=== PATIENT | male | born 1950 | race Caucasian/White ===

== ENCOUNTER 2018-02-27 20:08 | Inpatient (IN) | payer OTHER ==
[~2018-02-27] VITALS: Ht 152.4 cm; Wt 66.7 kg
--- NOTE | ~2018-02-27 | H ---
[address] [address] HISTORY AND PHYSICAL Name: SHIRLENE JACOBO Room: [address] IN M.R.#: [id number] Admission: 02/27/18 Attend Phys: Florin Rivera Discharge: 02/28/18 Date of : 46 Report #: [id number] THIS REPORT FOR: //name// Patient was here less than 24 hour please refer to the final summation note. By: [id number] Records Staff SHU /MIREYA
[2018-02-27 07:00] VITALS: BP 207/72
[2018-02-27] MEDS ORDERED: LISINOPRIL20 MG (20:25)
[2018-02-27] MEDS ORDERED: ASPIR-LOW81 MG (20:26)
[2018-02-27] MEDS ORDERED: NORVASC10 MG (20:27)
[2018-02-27] MEDS ORDERED: PRAVACHOL40 MG (20:27)
[2018-02-27] MEDS ORDERED: SYMBICORT160 MCG/4. (20:29)
[2018-02-27] MEDS ORDERED: VENTOLIN HFA 1818 GM (20:30)
[2018-02-27] MEDS ORDERED: ALBUTEROL2.5 MG/31 (20:31)
[2018-02-27 20:39] LABS: HEMATOCRIT 42.8 % (42.0-52.0); MCH 29.9 pg (26.0-34.0); MCHC 32.7 g/dL (28.0-37.0); MCV 91.3 fL (80.0-100.0); MPV 8.9 fl. (7.2-11.1); NUCLEATED RBCS 0 /100WBC; PLATELET COUNT* 308 thou/uL (150-400); RBC 4.69 mil/uL (4.50-6.00); WBC 14.9 thou/uL (4.0-11.0)
[2018-02-27 20:51] LABS: ANION GAP 17 mmol/L (7-16); BUN 18 mg/dL (7-18); CALCIUM 8.5 mg/dL (8.5-10.1); CHLORIDE 90 mmol/L (98-107); CO2 22 mmol/L (21-32); CREATININE 2.6 mg/dL (0.6-1.3); GLUCOSE 120 mg/dL (70-99); POTASSIUM 3.5 mmol/L (3.5-5.1); SODIUM 129 mmol/L (136-145)
[2018-02-27 20:55] LABS: INR 1.2; PROTIME 12.2 Seconds (9.20-11.50)
[2018-02-27 21:02] LABS: ABSOLUTE LYMPHOCYTES 0.3 thou/uL (0.8-5.3); ABSOLUTE MONOCYTES 1.6 thou/uL (0.0-1.2); METAMYELOCYTES 2 %; PLATELET ESTIMATE ADEQUATE
[2018-02-27 21:06] LABS: ALBUMIN 2.8 g/dL (3.4-5.0); ALKALINE PHOSPHATASE 61 U/L (46-116); NT-PRO BRAIN NAT PEPTIDE 3062 pg/mL (<300); SGOT 36 U/L (15-37); SGPT 45 U/L (30-65); TOTAL BILIRUBIN 1.1 mg/dL (<0.1-1.0); TOTAL PROTEIN 7.6 g/dL (6.4-8.2); TROPONIN-I LEVEL <0.06 ng/mL (<0.06)
[2018-02-27 21:07] LABS: BE -5.8 mmol/L (-2 to +3); HCO3 18.4 mmol/L (22.0-26.0); PCO2 32.5 mmHg (35.0-45.0)
[2018-02-27 21:09] LABS: PO2 125.8 mmHg (75.0-100.0)
--- NOTE | 2018-02-27 23:18 | NUR ---
PATIENT MOVED TO ROOM 1 AT APPROX 2220
[2018-02-28] VITALS (23 sets, daily range): BP systolic 62–250; BP diastolic 14–106
--- NOTE | 2018-02-28 02:09 | NUR ---
PATIENT INTUBATED AND CENTRAL LINE PLACEMENT DONE AT 2300. PATIENT THEN TRANSPORTED TO CT.
[2018-02-28 02:35] LABS: HCO3 18.1 mmol/L (22.0-26.0); PO2 101.4 mmHg (75.0-100.0)
[2018-02-28 02:36] LABS: PCO2 64.1 mmHg (35.0-45.0); pH 7.068 (7.340-7.450)
[2018-02-28 05:45] LABS: URINE BLOOD 2+ (Negative); URINE CLARITY CLEAR; URINE COLOR YELLOW; URINE GLUCOSE-RANDOM NEGATIVE (Negative); URINE KETONES TRACE (Negative); URINE LEUKOCYTES-REFLEX NEGATIVE (Negative); URINE NITRITE-REFLEX NEGATIVE (Negative); URINE PROTEIN 2+ (Negative); URINE SPECIFIC GRAVITY >= 1.030 (1.005-1.030); URINE UROBILINOGEN 0.2 E.U./dl (0.2-1.0)
[2018-02-28 05:48] LABS: ICTOTEST (BILI CONFIRMATORY) Negative (Negative); URINE BILIRUBIN 1+ (Negative)
[2018-02-28 05:55] LABS: BE -9.4 mmol/L (-2 to +3); HCO3 23.5 mmol/L (22.0-26.0); PO2 69.2 mmHg (75.0-100.0)
[2018-02-28 05:56] LABS: BACTERIA-REFLEX 1-9 Few /HPF (None Seen); COARSE GRANULAR CASTS 0-3 Few /LPF (None Seen); FINE GRANULAR CASTS 0-3 Few /LPF (None Seen); MUCUS 0-3 Light strn/LPF (None Seen); SQUAMOUS 0-3 Few /LPF (0-3); URINE RBC 3-10 Few /HPF (0-2); URINE WBC-REFLEX 0-5 Rare /HPF (0-5)
[2018-02-28 05:57] LABS: AMORPHOUS URATES Few /LPF (None Seen)
[2018-02-28 06:13] LABS: CREATININE 2.1 mg/dL (0.6-1.3)
[2018-02-28 06:18] LABS: INFLUENZA A ANTIGEN None Detected (None Detect); TOTAL BILIRUBIN 0.6 mg/dL (<0.1-1.0); TOTAL PROTEIN 6.1 g/dL (6.4-8.2)
[2018-02-28 06:19] LABS: INFLUENZA B ANTIGEN None Detected (None Detect)
--- NOTE | 2018-02-28 06:36 | NUR ---
ASSMUMED CARE OF PT AT 0330 WHEN PT TRANSFERED OVER FROM THE ER. ASSISSTED TO ICU BED. PT INTUBATED WITH REAPIRATORY TITRATING VENT SETTINGS. PT ON LEVO GTT TITRATING TO KEEP MAP ABOVE 65. PTS HR WAS 120'S. AT 0540
[2018-02-28 06:45] LABS: pH 7.042 (7.340-7.450)
[2018-02-28 06:46] LABS: PCO2 88.5 mmHg (35.0-45.0)
--- NOTE | 2018-02-28 07:29 | NUR ---
PT ARRIVED ON UNIT FROM ER AT 0330 PT ASSISTED TO BED. PT INTUBATED FOR RESPIRATORY FAILURE IN THE ER AND ON LEVO FOR HYPOTENSION HOLDING MAP ABOVE 65. AT 0545 PT BECAME PULSLESS CODE CALLED (SEE CODE SHEET) ROSC AT 0551. PTS BP 130'S/70'S. PT AGAIN BECAME PULSELESS FOR THE SECOND TIME AT 0650 (SEE CODE SHEET) PT ROSC 0700 HAD PULSE BUT UNABLE TO OBTAIN PRESSURE CONTACTED MD FOR 2ND PRESSOR EPI GTT STARTED PT BECAME PULSELESS FOR THE THIRD TIME AT 0716 (SEE CODE SHEET). DR TOWNSEND SPOKE WITH PTS DAUGHTER CODE CALLED AT 0721.
--- NOTE | 2018-02-28 10:12 | EKG ---
[place] [address] ELECTROCARDIOGRAM REPORT Name: SHIRLENE JACOBO Room: [address] ADM IN M.R.#: [id number] Admission: 02/27/18 Attend Phys: Florin Rivera Discharge: Date of : 46 Report #: [id number] THIS REPORT FOR: //name// [facility] ED Test Date: 2018-02-27 Test Time: 20:11:42 Pat Name: SHIRLENE JACOBO Department: Room: [facility] Gender: M Hospital Liaison: : 1950 Requested By: Sun Mendiola Order Number: [id number] MD: Lamine Lundberg Measurements Intervals [place] Rate: 118 P: 72 OK: 141 QRS: 73 QRSD: 95 T: 60 QT: 326 QTc: 457 Interpretive Statements Sinus tachycardia Probable left atrial enlargement Low voltage with right axis deviation Artifact in lead(s) I,III,aVL,V3,V4,V5 Compared to ECG 06/14/2008 13:48:59 Right-axis deviation now present Low QRS voltage now present Sinus rhythm no longer present Electronically Signed On 02-28-2018 10:12:19 WATCH AND CLOCK REPAIRER by Lamine Lundberg [email or web address] <ELECTRONICALLY SIGNED> By: Lamine Lundberg MD, FACC 02/28/18 1012 10 10 Lamine Lundberg MD, FACC /EPI
--- NOTE | 2018-02-28 10:15 | EKG ---
[place] [address] ELECTROCARDIOGRAM REPORT Name: SHIRLENE JACOBO Room: [address] ADM IN M.R.#: [id number] Admission: 02/27/18 Attend Phys: Florin Rivera Discharge: Date of : 46 Report #: [id number] THIS REPORT FOR: //name// [facility] Test Date: 2018-02-28 Test Time: 06:06:02 Pat Name: SHIRLENE JACOBO Department: Room: [address] Gender: M After School Program Coordinator: LEYDI : 1950 Requested By: Waqas Tracy Order Number: [id number] Drea MD: Lamine Lundberg Measurements Intervals [place] Rate: 129 P: 74 MA: 146 QRS: 37 QRSD: 85 T: 55 QT: 313 QTc: 459 Interpretive Statements Sinus tachycardia Low voltage, extremity leads Electronically Signed On 02-28-2018 10:15:27 CLUB LICENSEE by Lamine Lundberg [email or web address] <ELECTRONICALLY SIGNED> By: Lamine Lundberg MD, [facility] 02/28/18 1015 0606 06 Lamine Lundberg MD, FACC /EPI
--- NOTE | 2018-02-28 10:15 | EKG ---
[place] [address] ELECTROCARDIOGRAM REPORT Name: SHIRLENE JACOBO Room: [address] ADM IN M.R.#: [id number] Admission: 02/27/18 Attend Phys: Florin Rivera Discharge: Date of : 46 Report #: [id number] THIS REPORT FOR: //name// [facility] Test Date: 2018-02-28 Test Time: 06:01:51 Pat Name: SHIRLENE JACOBO Department: Room: [address] Gender: M Boiler Assistant Operator: LEYDI : 1950 Requested By: Waqas Tracy Order Number: [id number] Drea MD: Lamine Lundberg Measurements Intervals [place] Rate: 128 P: 0 MD: 136 QRS: -72 QRSD: 131 T: 47 QT: 312 QTc: 456 Interpretive Statements Sinus tachycardia low voltage RBBB Artifact in lead(s) II,III,aVF and baseline wander in lead(s) V4 Electronically Signed On 02-28-2018 10:15:03 MEDIA CENTER ASSISTANT by Lamine Lundberg [email or web address] <ELECTRONICALLY SIGNED> By: Lamine Lundberg MD, [facility] 02/28/18 1015 0601 0601 Lamine Lundberg MD, [facility] /EPI
--- NOTE | 2018-02-28 10:16 | EKG ---
[place] [address] ELECTROCARDIOGRAM REPORT Name: SHIRLENE JACOBO Room: [address] ADM IN M.R.#: [id number] Admission: 02/27/18 Attend Phys: Florin Rivera Discharge: Date of : 46 Report #: [id number] THIS REPORT FOR: //name// [facility] Test Date: 2018-02-28 Test Time: 07:07:26 Pat Name: SHIRLENE JACOBO Department: Room: [address] Gender: M Brass Bobbin Winder: MR : 1950 Requested By: Waqas Tracy Order Number: [id number] Drea MD: Lamine Lundberg Measurements Intervals [place] Rate: 129 P: 0 CO: 145 QRS: -60 QRSD: 122 T: 62 QT: 304 QTc: 446 Interpretive Statements Sinus tachycardia RBBB left axis low voltage Electronically Signed On 02-28-2018 10:16:15 QUALITY ASSURANCE MONITOR CHASSIS by Lamine Lundberg [email or web address] <ELECTRONICALLY SIGNED> By: Lamine Lundberg MD, [facility] 02/28/18 1016 0707 07 Lamine Lundberg MD, FACC /EPI
--- NOTE | 2018-03-07 13:26 | NUR ---
entered onto restraint log 03/07/18.
== END 2018-02-28 07:21 | DRG 871 ==
LOC: M.ERS 20:08 → M.ICU 21:40 → M.TBA-ER 21:40 → M.ICU 02-28 04:02
PROVIDERS: Emergency Medicine; ADMIT Internal Medicine
DX: A41.9 Sepsis, unspecified organism (principal); J18.1 Lobar pneumonia, unspecified organism; I10 Essential (primary) hypertension; J44.9 Chronic obstructive pulmonary disease, unspecified; N19 Unspecified kidney failure; Z87.891 Personal history of nicotine dependence; Z79.82 Long term (current) use of aspirin; Z79.899 Other long term (current) drug therapy; Z88.7 Allergy status to serum and vaccine